=== PATIENT | male | born 1985 | race Caucasian/White ===

== ENCOUNTER 2024-08-28 06:30 | Emergency (ER) | payer OTHER, SELFPAY ==
[2024-08-28 06:32] VITALS: BP 143/97; PULSE 74; RESP 20; TEMP 36.4; O2SAT 98
--- NOTE | 2024-08-28 06:52 | CT_ITS ---
PROCEDURE: ABDOMEN/PELVIS WITHOUT CONT 08/28/2024 REASON FOR EXAM: KIDNEY STONE TECHNIQUE: Abdomen and pelvis CT without intravenous contrast. Noncontrast technique limits evaluation of the abdominal and pelvic viscera. Coronal and Sagittal reconstruction series were provided. One or more dose reduction techniques were used (e.g., Automated exposure control, adjustment of the mA and/or kV according to patient size, use of iterative reconstruction technique). PATIENT PREPARATION: Per protocol ORAL CONTRAST TYPE: None. AMOUNT: mL COMPARISON: None available FINDINGS: Note of sequela of previous granulomatous disease at the visualized left base. The lung bases otherwise appear clear. The liver, gallbladder, adrenal glands, pancreas, left kidney and spleen appear within limits on noncontrast imaging. Small nonobstructing right intrarenal stone. 3 mm distal right ureteral stone at the UVJ with mild right hydroureteronephrosis. No perinephric stranding, edema. Abdominal aorta appears within limits on noncontrast imaging. Incidental note of a circumaortic left renal vein, anatomic variant. No adenopathy. No bowel dilation or free air. Normal caliber appendix without secondary signs. Mostly collapsed bladder appears within limits. No free fluid. Prostate appears within limits. The visualized osseous structures appear within limits. CT/Abdomen/Pelvis without Cont IMPRESSION: 3 mm distal right ureteral stone at the UVJ with mild right hydroureteronephros is. Small nonobstructing right intrarenal stone. Reading Location: [id number]
--- NOTE | 2024-08-28 06:55 | EX.ED.DYSGE1 ---
HPI History of Present Illness Chief Complaint: Flank Pain Detail of Chief Complaint: Acute right flank pain radiating to groin Informant: patient Onset/Context/Timing Onset: Today (Awoke patient at 0500) Context: Sudden Onset Timing: Continuous and Waxes and wanes Quality: Crampy sharp severe pain Location: Right flank radiating to groin Current Severity: Severe Maximum Severity: Severe Worsened by: Nothing Relieved by: Nothing Associated Symptoms Associated Symptoms: Nausea and vomiting Narrative Narrative: Patient is a healthy 39-year-old male on no medication with no past medical history who presents with abrupt onset of right flank pain that awoke him from sleep at 0500. This is associate with nausea and vomiting. He has no history of renal ureterolithiasis. No family history of renal ureterolithiasis. Only past surgical history is rhinoplasty due to fracture. Patient denies fever, chills night sweats. Patient denies dysuria, frequency, urgency or hematuria. Patient denies prior history. There is no history of trauma. Patient has not noted a rash. Prior similar symptoms: No Recent Illness/Hospitalization: No PFSH PFSH Medical History no medical history no medical history Home Medications ?Medication ?Instructions ?Recorded ?Last Taken ?Type hydrocodone-acetaminophen 5-325mg 1 tab PO Q6H PRN PRN Pain 3 days 08/28/24 Unknown Rx 5mg-325mg #10 TABLETS naproxen 500 mg tablet 500 mg PO BID #14 tabs 08/28/24 Unknown Rx Allergy/AdvReac Type Severity Reaction Status Date / Time No Known Allergies Allergy Verified 08/28/24 06:32 Family History no significant family his Surgical History no surgical history Social History (Updated 08/28/24 @ 06:[address] Celestino Pruett MD) household members: spouse and children Smoking Status: Current every day smoker tobacco type: smokeless tobacco ROS ROS ED Constitutional Constitutional ED: Denies chills, fever(s), subjective, sweats or weight loss Cardiovascular Cardiovascular: Denies chest pain or palpitations Respiratory/Chest Respiratory/Chest: Denies cough, dyspnea or dyspnea on exertion Gastrointestinal Gastrointestinal: Reports abdominal pain, nausea and vomiting; Denies constipation, diarrhea or melena Genitourinary Genitourinary ED: Denies dysuria, hematuria or urinary frequency Musculoskeletal Musculoskeletal: Reports other Details: Right flank pain ; Denies arthralgias or myalgias Integumentary Denies rash Neurologic Neurologic: Denies paresthesias or weakness Hematologic/Lymphatic Hematologic/Lymphatic: Reports systems reviewed and no addt'l complaints, except as documented EXAM Physical Exam Const Vital Signs: 08/28/24 06:32 Temperature 97.5 F L Temperature Source Oral Pulse Rate 74 Respiratory Rate 20 H Blood Pressure 143/97 H Blood Pressure Mean 112 Pulse Ox 98 Oxygen Delivery Method Room Air Positive well nourished and well developed Constitutional Narrative: Patient is in obvious discomfort. He was in a squatted position next to the bed when I entered the room. He is holding his right side. He states there is no position of comfort. General Appearance ED: well developed and pallor; Negative for cyanotic, diaphoretic or NAD HEENT Reports moist mucous membranes HEENT Narrative: Head is atraumatic normocephalic. Ears normal. Nares patent. Eyes PERRL and EOMs intact bilaterally General Eye ED: Negative for pale conjunctiva or scleral icterus Neck no lymphadenopathy, supple and no JVD Chest Wall inspection of chest normal and palpation of chest normal Resp normal respiratory effort and clear to auscultation bilaterally Cardio regular rate, regular rhythm, S1 normal heart sound, S2 normal heart sound and no murmurs GI normal to inspection, nondistended, normoactive bowel sounds, non-tender, non-distended and no masses; Negative for hepatosplenomegaly Back/Spine no CVA tenderness Extremity normal to inspection Neuro oriented x3 and CN's II-XII intact bilaterally Sensorium / Orientation: alert Psych mental status grossly normal Skin no rashes or lesions noted, no wounds and skin turgor normal General Skin Exam: pallor; Negative for jaundice MDM MDM MDM Narrative Medical decision making narrative: Differential diagnosis includes obstructing ureterolithiasis, obstructing ureterolithiasis with infection, atypical presentation for aortic aneurysm or dissection. Flank pain of unknown etiology. Workup included CT of the abdomen pelvis without contrast, appropriate blood work which included CBC, BMP and UA to assess renal function, white count and evidence of infection. Patient was medicated initially with Toradol and Zofran. Since his brought him he was also administered morphine. History & Record Review Additional record(s) reviewed:: No prior records Lab Data Attestation: I reviewed the patient's lab results. Lab results narrative: White count is unremarkable. Basic metabolic panel is elevated glucose of 157 with normal CO2 anion gap. Will need to determine when patient last ate. UA is unremarkable. He did have 10-25 RBCs on microscopic with no WBCs and no bacteria. Since he is pain-free will discharge with NSAID and opiate analgesia. He is referred to Dr. Medina who is on-call for urology. Labs: Laboratory Results - last 24 hr 08/28/24 08/28/24 06:39 07:30 WBC 6.7 RBC 4.98 Hgb 14.0 Hct 41.6 MCV 83.5 MCH 28.1 MCHC 33.7 RDW Std Deviation 37.5 RDW Coeff of Sylvia 12.4 Plt Count 288 MPV 9.7 Immature Gran % (Auto) 0.300 Neut % (Auto) 42.1 L Lymph % (Auto) 41.3 H [place] % (Auto) 12.0 H Eos % (Auto) 3.7 Baso % (Auto) 0.6 Absolute Neuts (auto) 2.8 Absolute Lymphs (auto) 2.76 Nucleated RBC % 0 Sodium 140 Potassium 4.0 Chloride 103 Carbon Dioxide 24.7 Anion Gap 13 BUN 15 Creatinine 1.19 Est GFR (MDRD) Non-Af 80 BUN/Creatinine Ratio 12.8 Glucose 157 H Calcium 9.3 Urine Color Yellow Urine Clarity Sl. Cloudy Urine pH 5.0 Ur Specific [place] 1.030 Urine Protein 30 H Urine Glucose (UA) Normal Urine Ketones Negative Urine Occult Blood 250 H Urine Nitrite Negative Urine Bilirubin Negative Urine Urobilinogen Normal Ur Leukocyte Esterase Negative Urine RBC 10-25 SEEN Urine WBC 0 SEEN Ur Squamous Epith Cells 0 SEEN Calcium Oxalate Crystal 1+ Urine Bacteria 0 SEEN Urine Mucus 1+ Radiography Diagnostic Testing: Clinical Impression(s) from Imaging Studies Abdomen/Pelvis CT 08/28/24 06:52 IMPRESSION: 3 mm distal right ureteral stone at the UVJ with mild right hydroureteronephrosis. Small nonobstructing right intrarenal stone. Reading Location: [id number] CT of the abdomen pelvis with contrast reveals a renal calculus on the right as well as hydroureter due to a right UVJ stone that is approximately 4 mm in size. The left kidney appears normal. There is no hydronephrosis or hydroureter. Liver and spleen appear normal. Awaiting formal read by radiologist, [id number]. Additional Tests and Interventions Additional Tests or Interventions: Patient was informed of the CT interpretation by me and white count. He is resting comfortably in bed. He feels much better. He has no questions. ([id number]) Treatment and Re-Evaluation :: Plan is discharged with pain medicine. He was discharged with prescription for Naprosyn and hydrocodone. He was referred to Dr. Medina who is on-call Comments:: Patient was assigned to Dr. Paulino since he does not have a primary care doctor. Discharge Plan Triage Chief Complaint: Flank Pain ED Provider: Celestino Pruett Dx/Rx/DC Orders Clinical Impression: Hydronephrosis with urinary obstruction due to ureteral calculus, Nausea, vomiting and diarrhea, Elevated blood-pressure reading without diagnosis of hypertension, Nondiabetic hyperglycemia Instructions: ED Kidney Stone with Pain, ED Hyperglycemia New Poss Diabetes Prescriptions: New hydrocodone-acetaminophen 5-325 mg tablet 1 tab PO Q6H PRN PRN (Reason: Pain) 3 Days Qty: 10 0RF naproxen 500 mg tablet 500 mg PO BID Qty: 14 0RF Primary Care Provider: Care Physician,No Primary Referrals: Oralia Paredes MD [Med Staff - Active Staff] - 1-2 Weeks Reji Medina MD [Med Staff - Active Staff] - 1 Week Care Physician,No Primary [Primary Care Provider] - Print Language: [place] Disposition Disposition: Home, Self Care
[2024-08-28] MEDS: Ketorolac 15 MG/ML Vial IV (06:59)
[2024-08-28] MEDS: Ondansetron 4 MG/2 ML Vial IV (06:59)
[2024-08-28] MEDS: Morphine 4 MG/ML Syringe IV (07:01)
[2024-08-28 07:18] LABS: Absolute Lymphocyte Count 2.76 X10^3/uL (0.83-4.51); Absolute Neutrophil Count 2.8 X10^3/uL (2.0-7.7); Basophil# 0.04 X10^3/uL; Basophil% 0.6 % (0-1); Eosinophil# 0.25 X10^3/uL; Eosinophils% 3.7 % (0-5); Hematocrit 41.6 % (40-54); Lymphocyte # 2.76 X10^3/ul (0.83-4.51); Lymphocyte % 41.3 % (19-41); Mean Corp Hgb Conc 33.7 g/dL (32-36); Mean Corpuscular Hgb 28.1 pg (27.0-32.0); Mean Corpuscular Volume 83.5 fL (80-94); Mean Platelet Vol. 9.7 fl (6.2-12.0); NRBC Flagged by Analyzer 0 % (0-5); Neutrophil # 2.81 X10^3/uL (2.7-7.7); Neutrophil % 42.1 % (47-70); Platelet Count 288 K/mm3 (150-450); RBC Distribution Width CV 12.4 % (11.6-14.6); RBC Distribution Width SD 37.5 fl (35.1-43.9); Red Blood Count 4.98 M/mm3 (4.6-6.2); White Blood Count 6.7 K/mm3 (4.4-11.0)
[2024-08-28 07:29] LABS: Anion Gap 13 (5-15); BUN 15 mg/dL (4-19); BUN/Creat Ratio 12.8 RATIO (10-20); Calcium,Total 9.3 mg/dL (7.6-11.0); Carbon Dioxide 24.7 mmol/L (21.0-32.0); Chloride 103 mmol/L (98-108); Creatinine, Serum 1.19 mg/dL (0.70-1.20); EST Glomerular Filtration Rate 80 (>60); Glucose 157 mg/dL (70-99); Sodium Level 140 mmol/L (133-145)
[2024-08-28 07:52] LABS: Bacteria 0 SEEN /hpf (None Seen); Squamous Epithelial Cells - UA 0 SEEN /hpf (0-5); White Blood Cells 0 SEEN /hpf (0-5)
[2024-08-28 08:55] LABS: Color, Urine Yellow (Yellow); Glucose, Dipstick Normal (Normal); Ketone-Dipstick Negative (Negative); Leukocyte Esterase-Dipstick Negative /ul (Negative); Nitrite-Dipstick Negative (Negative); Occult Blood-Urine 250 /ul (Negative); Protein-Dipstick 30 mg/dl (Negative); Urine Bilirubin Dipstick Negative (Negative); Urine Clarity Sl. Cloudy (Clear); Urine Urobilinogen Normal (Normal)
[2024-08-28 09:19] LABS: Calcium Oxalate Crystals Ur 1+ /hpf (<or=2+); Mucous, Urine 1+ /hpf (<or=2+); Red Blood Cells-Urine 10-25 SEEN /hpf (0-5)
[2024-08-28 10:16] VITALS: BP 118/62; PULSE 72; RESP 16; TEMP 36.6; O2SAT 99
== END 2024-08-28 10:26 | disposition home or self-care (01) ==
PROVIDERS: Emergency Provider Emergency Medicine; Visit Provider Emergency Medicine
DX: R10.9 Unspecified abdominal pain (principal); N13.2 Hydronephrosis with renal and ureteral calculous obstruction; R11.2 Nausea with vomiting, unspecified; R19.7 Diarrhea, unspecified; R03.0 Elevated blood-pressure reading, without diagnosis of hypertension; F17.220 Nicotine dependence, chewing tobacco, uncomplicated; R73.9 Hyperglycemia, unspecified
CPT/HCPCS: 74176; 80048; 81001; 85025; 96374; 96375; 99283; A4216; J2405